=== PATIENT | male | born 1970 | race Caucasian/White ===

== ENCOUNTER 2019-02-07 10:39 | Emergency (ER) | payer MEDICAID ==
[~2019-02-07] VITALS: Ht 167.6 cm; Wt 97.9 kg
[~2019-02-07 10:39] MED LIST: ACYC800T5 PO; HYDR-3498 PO; PRED50TA PO
[2019-02-07 10:41] VITALS: BP 191/96; PULSE 67; RESP 17; Ht 167.6 cm; Wt 97.9 kg
[2019-02-07] MEDS ORDERED: ONDANSETRON 4 MG INJ IV STA (11:14)
[2019-02-07] MEDS ORDERED: METF500T24 PO (11:23)
[2019-02-07] MEDS ORDERED: DICY10CA40 PO (12:13)
--- NOTE | 2019-02-07 12:16 | ERD ---
ER Documentation Chief Complaint Chief Complaint ABD PAIN, NAUSEA X4 DAYS HPI 48-year-old male presents the emergency [place] complaining of abdominal pain. Patient states that over the last 4 days is a diffuse, nonspecific visceral type abdominal discomfort. The pain is poorly localized. He has had nausea but no anorexia. He reports no fevers or chills, diarrhea or urinary symptoms. The pain is currently reported as mild. ROS All systems reviewed and are negative except as per history of present illness. Medications Home Meds Active Scripts Dicyclomine HCl (Dicyclomine HCl) 10 Mg Capsule, 10 MG PO TID PRN for ABDOMINAL CRAMPING, #20 CAP Prov:JOHN CHENEY 02/07/19 Reported Medications Metformin Hcl* (Metformin Hcl*) 500 Mg Tablet, 500 MG PO WITH BREAKFAST DINNE, #60 TAB 02/07/19 Discontinued Scripts Prednisone* (Prednisone*) 50 Mg Tablet, 50 MG PO DAILY, #5 TAB Prov:TAO ALCANTAR PA-C 12/17/15 Hydrocodone Bit-Acetaminophen* ([place]*) 5-325 Mg Tab, 1 TAB PO Q6 PRN for PAIN, #20 TAB Prov:TAO ALCANTAR PA-C 12/17/15 Acyclovir* (Zovirax*) 800 Mg Tablet, 400 MG PO TID for 5 Days, TAB Prov:TAO ALCANTAR PA-C 12/17/15 Allergies Allergies: Coded Allergies: No Known Allergy (Unverified , 02/07/19) PMhx/Soc History of Surgery: Yes (lt shoulder ) Anesthesia Reaction: No Hx Neurological Disorder: No Hx Respiratory Disorders: No Hx Cardiac Disorders: No Hx Psychiatric Problems: No Hx Miscellaneous Medical Probl: Yes (DM) Hx Alcohol Use: Yes Hx Substance Use: No Hx Tobacco Use: Yes Smoking Status: Current every day smoker FmHx Noncontributory for chief complaint Physical Exam Vitals Vital Signs Date Temp Pulse Resp B/P (MAP) Pulse Ox O2 O2 Flow FiO2 Time Delivery Rate 02/07/19 98.3 67 17 191/96 98 10:41 (127) Physical Exam GENERAL: The patient is well developed and appropriate for usual state of health in no apparent distress HEENT: Pupils equal, round, and reactive to light. EOMI. There is no scleral icterus. NECK: C-spine is soft and supple, there is no meningismus. There is no cervical lymphadenopathy. LUNGS: Clear to auscultation bilaterally. There are no rales, wheezes or rhonchi. HEART: Regular rate and rhythm, no murmurs, clicks, rubs or gallops. ABDOMEN: Soft, non-tender, non-distended. There are bowel sounds in all four quadrants. No rebound or guarding. EXTREMITIES: There is no peripheral cyanosis or edema. No focal swelling or erythema. NEURO: The patient moves all four extremities with 5/5 strength. Cranial nerves II - XII are intact. Normal gait. Alert and oriented SKIN: There is no apparent rash or petechiae. HEME/LYMPHATIC: There is no evidence of excessive bruising or lymphedema. PSYCHIATRIC: The patient does not appear anxious or depressed. Result Diagram: 02/07/19 1125 02/07/19 1125 Results 24 hrs Laboratory Tests Test 02/07/19 11:20 02/07/19 11:25 Urine Color YELLOW Urine Clarity CLEAR Urine pH 7.0 Urine Specific Jerome 1.022 Urine Ketones TRACE mg/dL Urine Nitrite NEGATIVE mg/dL Urine Bilirubin NEGATIVE mg/dL Urine Urobilinogen NEGATIVE mg/dL Urine Leukocyte Esterase NEGATIVE Julien/ul Urine Hemoglobin NEGATIVE mg/dL Urine Glucose 3+ mg/dL Urine Total Protein NEGATIVE mg/dl White Blood Count 9.8 10^3/ul Red Blood Count 4.87 10^6/ul Hemoglobin 14.7 g/dl Hematocrit 42.3 % Mean Corpuscular Volume 86.9 fl Mean Corpuscular Hemoglobin 30.2 pg Mean Corpuscular Hemoglobin Concent 34.8 g/dl Red Cell Distribution Width 12.3 % Platelet Count 230 10^3/UL Mean Platelet Volume 10.4 fl Immature Granulocytes % 0.900 % Neutrophils % 73.2 % Lymphocytes % 20.1 % Monocytes % 4.9 % Eosinophils % 0.6 % Basophils % 0.3 % Nucleated Red Blood Cells % 0.0 /100WBC Immature Granulocytes # 0.090 10^3/ul Neutrophils # 7.2 10^3/ul Lymphocytes # 2.0 10^3/ul Monocytes # 0.5 10^3/ul Eosinophils # 0.1 10^3/ul Basophils # 0.0 10^3/ul Nucleated Red Blood Cells # 0.0 10^3/ul Sodium Level 139 mmol/L Potassium Level 4.1 mmol/L Chloride Level 103 mmol/L Carbon Dioxide Level 25 mmol/L Anion Gap 11 Blood Urea Nitrogen 9 mg/dl Creatinine 0.47 mg/dl Est Glomerular Filtrat Rate mL/min > 60 mL/min Glucose Level 227 mg/dl Calcium Level 9.5 mg/dl Total Bilirubin 0.4 mg/dl Direct Bilirubin 0.00 mg/dl Indirect Bilirubin 0.4 mg/dl Aspartate Amino Transf (AST/SGOT) 24 IU/L Alanine Aminotransferase (ALT/SGPT) 26 IU/L Alkaline Phosphatase 114 IU/L Total Protein 8.1 g/dl Albumin 4.6 g/dl Globulin 3.50 g/dl Albumin/Globulin Ratio 1.31 Lipase 113 U/L Current Medications Medications Dose Sig/Sanjay Start Time Status Last (Trade) Ordered Route PRN Stop Time Admin Dose Reason Admin Ondansetron 4 mg ONCE STAT 02/07/19 DC 02/07/19 HCl (Zofran IV 11:14 02/07/19 11:33 Inj) 11:16 Procedures/MDM Patient was taken to a room, seen and evaluated. Comfort measures were initiated. Diagnostic tests were ordered and reviewed. 3 LEAD RHYTHM STRIP: Normal sinus rhythm without ectopy RADIOLOGY: Reviewed with the radiologist REEVALUATION: 1215: Serial examinations of the abdomen remained benign. Diagnostic tests were appreciated discussed with the patient. He remained well- appearing. MEDICAL DECISION MAKING: Patient presents with abdominal pain of uncertain etiology. Differential diagnosis considered includes appendicitis, diverticulitis, cholecystitis and other intra-abdominal medical and surgical concerns. I have reviewed the patients lab studies and imaging as well as multiple examinations of the abdomen. At this time, patient shows no evidence of high risk intra-abdominal surgical infections or other high-risk concerns. Kidney stones appendicitis and other causes of been essentially ruled out. This may be related to patient's diabetes, but his blood sugar is adequately controlled. Overall, he appears to be clinically nontoxic and appropriate for discharge. Departure Diagnosis: Primary Impression: Abdominal pain Condition: Stable Patient Instructions: Abdominal Pain Additional Instructions: Consulte a wall mdico para el seguimiento segn lo discutido. Lleve luis copia de los resultados de wall prueba, si corresponde, a esta visita de seguimiento. Consulte a wall mdico o regrese aqu si sherine sntomas no mejoran kerry se esperaba. En cualquier momento, regrese al departamento de emergencias por cualquier cambio o empeoramiento en sherine sntomas. JOHN CHENEY Feb 07, 2019 12:16
[2019-02-07] MEDS ORDERED: POLY17PO6 PO (22:19)
== END 2019-02-07 12:32 | disposition home or self-care (01) ==
LOC: E/R 10:39
DX: R10.9 Unspecified abdominal pain (principal); E11.9 Type 2 diabetes mellitus without complications; F17.210 Nicotine dependence, cigarettes, uncomplicated; R11.0 Nausea
CPT/HCPCS: 36415; 74176; 80053; 81003; 83690; 85025; 96374; J2405; Z7502

== ENCOUNTER 2019-02-07 20:04 | Emergency (ER) | payer MEDICAID ==
[~2019-02-07] VITALS: Ht 177.8 cm; Wt 98.8 kg
[~2019-02-07 20:04] MED LIST changes: +DICY10CA40 PO; +METF500T24 PO
[2019-02-07 20:07] VITALS: Ht 177.8 cm; Wt 98.8 kg
[2019-02-07] MEDS ORDERED: MAGNESIUM CITRATE 300 ML BTL PO ONE (21:30)
[2019-02-07] MEDS ORDERED: KETOROLAC 60 MG INJ IM STA (21:30)
[2019-02-07] MEDS ORDERED: POLY17PO6 PO (22:19)
--- NOTE | 2019-02-07 22:33 | ERD ---
ER Documentation Chief Complaint Chief Complaint Pt reports AP, nausea and unable to have BM HPI 48-year-old male presenting with complaints of generalized abdominal pain with nausea and constipation for 2 days. Patient was seen here at this morning for the same complaint and had a pretty extensive work-up done which did not show any significant abnormalities. This included CT scan of the abdomen and pelvis. He denies any vomiting, fevers, chills, melena, hematochezia. He is used to having multiple bowel movements a day. His diet has not changed. He has had no new medications. ROS All systems reviewed and are negative except as per history of present illness. Medications Home Meds Active Scripts Polyethylene Glycol* (Miralax*) 17 Gm Powd.pack, 17 GM PO DAILY, #7 Prov:DULCE WOMACK MD 02/07/19 Dicyclomine HCl (Dicyclomine HCl) 10 Mg Capsule, 10 MG PO TID PRN for ABDOMINAL CRAMPING, #20 CAP Prov:JOHN CHENEY 02/07/19 Reported Medications Metformin Hcl* (Metformin Hcl*) 500 Mg Tablet, 500 MG PO WITH BREAKFAST DINNE, #60 TAB 02/07/19 Discontinued Scripts Prednisone* (Prednisone*) 50 Mg Tablet, 50 MG PO DAILY, #5 TAB Prov:TAO ALCANTAR PA-C 12/17/15 Hydrocodone Bit-Acetaminophen* ([place]*) 5-325 Mg Tab, 1 TAB PO Q6 PRN for PAIN, #20 TAB Prov:TAO ALCANTAR PA-C 12/17/15 Acyclovir* (Zovirax*) 800 Mg Tablet, 400 MG PO TID for 5 Days, TAB Prov:TAO ALCANTAR PA-C 12/17/15 Allergies Allergies: Coded Allergies: No Known Allergy (Unverified , 02/07/19) PMhx/Soc History of Surgery: Yes (lt shoulder, L ear surgery) Anesthesia Reaction: No Hx Neurological Disorder: No Hx Respiratory Disorders: No Hx Cardiac Disorders: Yes (Untreated hypertension) Hx Psychiatric Problems: No Hx Miscellaneous Medical Probl: Yes (DM) Hx Alcohol Use: Yes (socially) Hx Substance Use: No Hx Tobacco Use: Yes Smoking Status: Never smoker FmHx Family History: No diabetes Physical Exam Vitals Vital Signs Date Temp Pulse Resp B/P (MAP) Pulse Ox O2 O2 Flow FiO2 Time Delivery Rate 02/07/19 84 15 181/98 99 Room Air 21:24 (125) 02/07/19 98.9 76 16 214/98 100 20:07 (136) Physical Exam Const: No acute distress Head: Atraumatic Eyes: Normal Conjunctiva ENT: Normal External Ears, Nose and Mouth. Neck: Full range of motion. No meningismus. Resp: Clear to auscultation bilaterally Cardio: Regular rate and rhythm, no murmurs. 2+ radial pulses bilaterally. 2+ bounding DP and PT pulses bilaterally. Abd: Soft, minimal tenderness in the upper and mid abdomen with no rebound or guarding. No peritoneal signs. No McBurney's point tenderness. Negative Rader sign. Non distended. Normal bowel sounds Skin: No petechiae or rashes Back: No midline or flank tenderness Ext: No cyanosis, or edema Neur: Awake and alert, normal speech, no facial asymmetry, moving all extremities Psych: Normal Mood and Affect Results 24 hrs Current Medications Medications Dose Sig/Sanjay Start Time Status Last (Trade) Ordered Route PRN Stop Time Admin Dose Reason Admin Magnesium 300 ml ONCE ONCE 02/07/19 DC 02/07/19 Citrate PO 21:30 02/07/19 21:37 (Citroma) 21:32 Ketorolac 60 mg ONCE STAT 02/07/19 DC 02/07/19 Tromethamine IM 21:30 02/07/19 21:37 (Toradol) 21:32 Procedures/MDM Patient is presenting again for generalized abdominal pain. Vitals are notable for hypertension otherwise he is afebrile. No evidence of acute surgical abdomen on exam. His pain is likely secondary from his constipation. I considered aortic dissection and bowel ischemia, however I have a very low suspicion for these. At this moment the etiology of the abdominal pain is unknown. The patients vitals have been noted and are currently afebrile and hemodynamically stable. The workup, physical exam and observation period do not indicate a serious cause to the pain. CT was done earlier today and the patient did not appear to have appendicitis, diverticular disease, intestinal obstructio n, vascular abnormality or other life threatening condition. The patients symptoms have improved while in the ED and the patient remains hemodynamically stable. Patient was able to tolerate PO. The current assessment has been explained to the patient including the fact that the etiology of the pain cannot be ruled out with certainty. Patient was advised that in the event this is early in the process of a more serious condition they may expect their symptoms to worsen and if so to return to the emergency department immediately. Patient was advised to follow up with primary care physician as soon as possible for re-evaluation within the next 1-2 days. All of the patients questions were answered. Patient verbalized understanding of plan and agrees. Advised to return to the ER for reevaluation within 12 hours if symptoms worsen. Patient's blood pressure was elevated (>120/80) but appears stable without evidence of hypertension emergency or urgency. The patient was counseled about the risks of hypertension and urged to pursue outpatient monitoring and therapy within a week with their primary care physician. Departure Diagnosis: Primary Impression: Abdominal pain Abdominal location: generalized Qualified Codes: R10.84 - Generalized abdominal pain Additional Impressions: Hypertension Hypertension type: unspecified Qualified Codes: I10 - Essential (primary) hypertension Constipation Constipation type: unspecified constipation type Qualified Codes: K59.00 - Constipation, unspecified Condition: Stable Patient Instructions: Abdominal Pain, High Blood Pressure (Hypertension), Constipation (Adult) Referrals: NO PRIMARY,CARE PHYSICIAN (PCP) [facility] ([facility]) Usted se chambers hecho un examen mdico de control que le indica que no est en luis condicin que requiera tratamiento urgente en el Departamento de Emergencia. Un estudio ms profundo y el tratamiento de wall condicin pueden esperar sin ningn riesgo hasta que usted sea atendida/o en el consultorio de wall mdico o luis cln ica. Es responsabilidad suya arreglar luis geovani para el seguimiento del alicia. MANEJO DE CONDICIONES NO URGENTES EN EL FUTURO 1) Si usted tiene un mdico de atencin primaria: Usted debera llamar a wall mdico de atencin primaria antes de venir al departa mento de emergencia. Despus de las horas de consultorio, wall doctor o wall asociado/a est disponible por telfono. El mdico o enfermero de ruba en el servicio telefnico puede asesorarle por rocco medio para atender el problema, o alicia contrario se puede programar luis geovani. 2) Si usted no tiene un mdico de atencin primaria: Llame al mdico o clnica de referencia que aparece abajo spencer las horas de consultorio para hacer luis geovani para que le vean. CLINICAS: [facility] [phone] [facility] [phone] [facility] [facility] [phone] [facility]. [facility] [phone] [facility]. [place] [id number] [phone] [facility] [phone] [address] Additional Instructions: Regresa a la patsy de emergencias si estas empeorando. Janessa luis geovani con un medico general para tratamiento de wall monisha presion. DULCE WOMACK MD Feb 07, 2019 22:33
[2019-02-07 22:45] VITALS: BP 169/98; PULSE 80; RESP 16
== END 2019-02-07 22:48 | disposition home or self-care (01) ==
LOC: E/R 20:04
DX: R10.84 Generalized abdominal pain (principal); E11.9 Type 2 diabetes mellitus without complications; I10 Essential (primary) hypertension; K59.00 Constipation, unspecified; Z87.891 Personal history of nicotine dependence; Z79.84 Long term (current) use of oral hypoglycemic drugs
CPT/HCPCS: 96372; J1885; Z7502; Z7610